=== PATIENT | female | born 1975 | race African-American/Black ===

== ENCOUNTER 2017-01-31 18:58 | Emergency (ER) | payer MEDICAID ==
[~2017-01-31] VITALS: Ht 165.1 cm; Wt 88.2 kg
[~2017-01-31 18:58] MED LIST: GLIPI PO; [UNRECOGNIZED DRUG - OTHER] PO
[2017-01-31 19:05] VITALS: BP 140/90
[2017-01-31] MEDS ORDERED: METF500T4 PO (19:15)
[2017-01-31] MEDS ORDERED: GLIP5TAB11 PO (19:15)
[2017-01-31 19:16] LABS: GLUCOSE,POINT OF CARE 278 MG/DL (70-110)
== END 2017-01-31 21:25 | disposition left against medical advice (07) ==
LOC: EMS 18:59
DX: L50.0 Allergic urticaria (principal); T36.5X5A Adverse effect of aminoglycosides, initial encounter; E11.9 Type 2 diabetes mellitus without complications; F17.210 Nicotine dependence, cigarettes, uncomplicated; Z53.21 Procedure and treatment not carried out due to patient leaving prior to being seen by health care provider; Y92.89 Other specified places as the place of occurrence of the external cause
CPT/HCPCS: 82962

== ENCOUNTER 2017-07-23 19:42 | Emergency (ER) | payer MEDICAID, OTHER ==
[~2017-07-23] VITALS: Ht 165.1 cm; Wt 90.0 kg
[~2017-07-23 19:42] MED LIST changes: +GLIP5TAB11 PO; -GLIPI PO; +METF500T4 PO; -[UNRECOGNIZED DRUG - OTHER] PO
[2017-07-23] MEDS ORDERED: SODIUM CHLORIDE 0.9% 1,000 ML IV ONE ×2 (20:15→21:45)
[2017-07-23 20:57] LABS: BASOPHILS % (AUTO) 0.5 % (0.0-2.0); HEMATOCRIT 37.6 % (36-46); HEMOGLOBIN 12.7 g/dL (12.0-16.0); LYMPHOCYTES # (AUTO) 2.6 K/uL (1.0-4.8); LYMPHOCYTES % (AUTO) 36.5 % (22.0-44.0); MEAN CORPUSCULAR HEMOGLOBIN 32.9 pg (26.0-34.0); MEAN CORPUSCULAR HGB CONC 33.9 G/dL (31.0-37.0); MEAN CORPUSCULAR VOLUME 97 fL (80-100); MONOCYTES # (AUTO) 0.6 K/uL (0.1-1.0); MONOCYTES % (AUTO) 8.8 % (2.0-9.0); NEUTROPHILS # (AUTO) 3.7 K/uL (1.8-7.7); NEUTROPHILS % (AUTO) 53.2 % (40.0-70.0); PLATELET COUNT (AUTO) 193 K/uL (150-450); RED BLOOD CELL COUNT(AUTO) 3.87 MIL/uL (4.00-5.20); RED CELL DISTRIBUTION WIDTH 12.4 % (11.5-14.5)
[2017-07-23 21:16] LABS: ALANINE AMINOTRANSFERASE 16 U/L (12-78); ALBUMIN 3.1 g/dL (3.4-5.0); ANION GAP 7 mmol/L (8-16); ASPARTATE AMINOTRANSFERASE 13 U/L (15-37); BILIRUBIN,TOTAL 0.4 mg/dL (0.1-1.0); CALCIUM, TOTAL 8.5 mg/dL (8.8-10.5); CARBON DIOXIDE 26 mmol/L (22-29); CHLORIDE 102 mmol/L (98-107); GLOMERULAR FILTR. RATE CALC > 60 mL/min (>60); SODIUM SERUM 135 mmol/L (136-145); TOTAL PROTEIN, SERUM 6.7 g/dL (6.4-8.2); UREA NITROGEN, BLOOD 11 mg/dL (7-18)
[2017-07-23 21:35] LABS: APPEARANCE,URINE CLEAR (CLEAR); GLUCOSE, URINE (UA) >=1000 mg/dL (NEGATIVE); KETONES,URINE NEGATIVE (NEGATIVE); LEUKOCYTE ESTERASE ,URINE NEGATIVE (NEGATIVE); OCCULT BLOOD,URINE TRACE (NEGATIVE); PROTEIN,URINE NEGATIVE (NEGATIVE)
[2017-07-23 21:37] LABS: SQUAMOUS EPITHELIAL CELL,UR Few /LPF (None Seen)
[2017-07-23 21:38] LABS: WBC,URINE 0-2 /HPF (0-5)
[2017-07-23] MEDS ORDERED: INSULIN REGULAR, HUMAN 100 UNITS/ML IVP ONE (21:45)
[2017-07-23] MEDS ORDERED: FentaNYL CITRATE-PF 100 MCG/2 ML VIAL IVP ONE (21:45)
[2017-07-23 23:12] LABS: GLUCOSE,POINT OF CARE 179 MG/DL (70-110)
[2017-07-23 23:19] VITALS: BP 115/65
== END 2017-07-23 23:31 | disposition home or self-care (01) ==
LOC: EMS 19:44
DX: E11.65 Type 2 diabetes mellitus with hyperglycemia (principal); J40 Bronchitis, not specified as acute or chronic; F17.210 Nicotine dependence, cigarettes, uncomplicated; Z79.4 Long term (current) use of insulin
CPT/HCPCS: 36415; 71010; 80053; 80307; 81001; 82962; 84703; 85025; 96361; 96374; 96375; 99285; J1815; J3010; J7030

== ENCOUNTER 2018-09-29 11:48 | Emergency (ER) | payer SELFPAY ==
[~2018-09-29] VITALS: Ht 167.6 cm; Wt 81.8 kg
[~2018-09-29 11:48] MED LIST changes: +METF-960 PO; -METF500T4 PO
[2018-09-29] MEDS ORDERED: INSNOV SQ (12:01)
[2018-09-29 12:09] LABS: GLUCOSE,POINT OF CARE 362 MG/DL (70-110)
[2018-09-29 14:53] LABS: APPEARANCE,URINE CLEAR (CLEAR); BILIRUBIN,URINE NEGATIVE (NEGATIVE); GLUCOSE, URINE (UA) >=1000 mg/dL (NEGATIVE); KETONES,URINE NEGATIVE (NEGATIVE); LEUKOCYTE ESTERASE ,URINE NEGATIVE (NEGATIVE); NITRATE,URINE NEGATIVE (NEGATIVE); OCCULT BLOOD,URINE SMALL (NEGATIVE); PROTEIN,URINE NEGATIVE (NEGATIVE); UROBILINOGEN,URINE 0.2 mg/dL (<=1.0)
[2018-09-29 15:01] LABS: BASOPHILS % (AUTO) 0.7 % (0.0-2.0); EOSINOPHILS % (AUTO) 1.4 % (1.0-6.0); HEMATOCRIT 36.2 % (36-46); HEMOGLOBIN 12.6 g/dL (12.0-16.0); LYMPHOCYTES # (AUTO) 2.8 K/uL (1.0-4.8); LYMPHOCYTES % (AUTO) 47.6 % (22.0-44.0); MEAN CORPUSCULAR HEMOGLOBIN 32.6 pg (26.0-34.0); MEAN CORPUSCULAR HGB CONC 34.7 G/dL (31.0-37.0); MEAN CORPUSCULAR VOLUME 94 fL (80-100); MONOCYTES # (AUTO) 0.4 K/uL (0.1-1.0); MONOCYTES % (AUTO) 6.3 % (2.0-9.0); NEUTROPHILS # (AUTO) 2.6 K/uL (1.8-7.7); PLATELET COUNT (AUTO) 184 K/uL (150-450); RED BLOOD CELL COUNT(AUTO) 3.86 MIL/uL (4.00-5.20); RED CELL DISTRIBUTION WIDTH 12.1 % (11.5-14.5)
[2018-09-29 15:21] LABS: ALANINE AMINOTRANSFERASE 18 U/L (12-78); ALBUMIN 3.2 g/dL (3.4-5.0); ALKALINE PHOSPHATASE 93 U/L (46-116); ANION GAP 7 mmol/L (8-16); ASPARTATE AMINOTRANSFERASE 14 U/L (15-37); BILIRUBIN,TOTAL 0.3 mg/dL (0.1-1.0); CALCIUM, TOTAL 9.1 mg/dL (8.8-10.5); CARBON DIOXIDE 27 mmol/L (22-29); CHLORIDE 99 mmol/L (98-107); CREATININE 0.96 mg/dL (0.60-1.30); GLOMERULAR FILTR. RATE CALC > 60 mL/min (>60); LIPASE 51 U/L (73-393); POTASSIUM 4.3 mmol/L (3.5-5.1); SODIUM SERUM 133 mmol/L (136-145); TOTAL PROTEIN, SERUM 7.3 g/dL (6.4-8.2); UREA NITROGEN, BLOOD 14 mg/dL (7-18)
[2018-09-29 15:24] LABS: GLUCOSE,RANDOM 425 mg/dL (70-110)
[2018-09-29 15:27] LABS: BACTERIA,URINE Many /HPF (None Seen); RBC,URINE 0-2 /HPF (0-2); WBC,URINE 0-2 /HPF (0-5); YEAST,URINE Rare /HPF (None Seen)
[2018-09-29 15:28] LABS: SQUAMOUS EPITHELIAL CELL,UR Rare /LPF (None Seen)
[2018-09-29] MEDS: SODIUM CHLORIDE 0.9% 1,000 ML IV ONE (15:38)
[2018-09-29] MEDS: INSULIN REGULAR, HUMAN 100 UNITS/ML IVP ONE (15:58)
[2018-09-29 16:53] LABS: GLUCOSE,POINT OF CARE 173 MG/DL (70-110)
[2018-09-29 17:14] VITALS: BP 128/80
== END 2018-09-29 17:25 | disposition home or self-care (01) ==
LOC: EMS 11:49
DX: R10.12 Left upper quadrant pain (principal); E11.65 Type 2 diabetes mellitus with hyperglycemia; N39.0 Urinary tract infection, site not specified; F17.210 Nicotine dependence, cigarettes, uncomplicated; Z79.4 Long term (current) use of insulin
CPT/HCPCS: 36415; 74176; 80053; 81001; 82962; 83690; 84703; 85025; 87077; 87086; 87186; 96361; 96374; 99284; J1815; J7030